=== PATIENT | female | born 1955 | race Caucasian/White ===

== ENCOUNTER 2024-11-25 12:08 | Emergency (ER) | payer MEDICARE, OTHER ==
[~2024-11-25] VITALS: Ht 154.9 cm; Wt 94.3 kg
[~2024-11-25 12:08] MED LIST: AMILORIDE HCL5 MG PO; CEPHALEXIN500 M1 PO; DILTIAZEM 24HR180 M1 PO; METOPROLOL SUCC25 MG PO; PANTOPRAZOLE SO40 MG PO; PAROXETINE HCL20 MG PO; SODIUM FLUORID100 ML DT; TIZANIDINE HCL2 MG PO
[2024-11-25] MEDS ORDERED: CARTIA XT180 MG PO (12:43)
[2024-11-25] MEDS ORDERED: FLUTICASONE-SA1 EAC4 IH (12:44)
[2024-11-25] MEDS ORDERED: FLUTICASONE PRO16 GM NAS (12:44)
[2024-11-25] MEDS ORDERED: OXYCODONE HCL 5 MG TAB PO ONE ×2 (12:45→13:45)
[2024-11-25] MEDS ORDERED: LIDOCAINE HCL 4% 1 EACH PATCH TD ONE (13:00)
[2024-11-25] MEDS ORDERED: KETOROLAC TROMETHAMINE 15 MG/ML VIAL IM ONE (13:00)
[2024-11-25] MEDS ORDERED: CYCLOBENZAPRINE HCL 10 MG TAB PO ONE ×2 (13:00→13:45)
[2024-11-25] MEDS ORDERED: CYCLOBENZAPRINE10 MG PO (15:21)
[2024-11-25] MEDS ORDERED: PERCOCET 5-3251 EACH PO (15:21)
[2024-11-25 15:28] VITALS: BP 143/73
--- NOTE | 2024-11-25 17:18 | EKG ---
[facility] [address] [facility] [facility] [address] [place], [place] [address] Signed Sinus bradycardia with sinus arrhythmia with 1st degree AV block Otherwise normal ECG No previous ECGs available Confirmed by Hair Brown MD ([id number]) on 11/25/2024 5:18:15 PM Electronically Signed By: HAIR BROWN MD 11/25/24 1718 PATIENT NAME: SHAMAR COTA Electrocardiogram DATE OF : 53 PHYSICIAN: HAIR BROWN MD REPORT #: [id number] REPORT IS CONFIDENTIAL AND NOT TO BE RELEASED WITHOUT AUTHORIZATION
[2024-11-25] MEDS ORDERED: LIDOCAINE PATCH REMOVAL 1 EA TD SCH (21:00)
== END 2024-11-25 15:30 | disposition home or self-care (01) ==
LOC: ED 12:08
DX: M54.50 Low back pain, unspecified (principal); I10 Essential (primary) hypertension; J45.909 Unspecified asthma, uncomplicated; Z91.041 Radiographic dye allergy status; Z88.8 Allergy status to other drugs, medicaments and biological substances; Z88.2 Allergy status to sulfonamides; Z79.899 Other long term (current) drug therapy
CPT/HCPCS: 96372; 99283; A9270; J1885

== ENCOUNTER 2025-03-14 21:41 | Emergency (ER) | payer MEDICARE, OTHER ==
[~2025-03-14] VITALS: Ht 154.9 cm; Wt 94.3 kg
--- OUTSIDE RECORDS SUMMARY | ~2025-03-14 | XMS | Continuity of Care Document ---
Demographics + + + | Address | [address] | | | [place] [address] | + + + | Preferred Language | Unknown | + + + | Marital Status | | + + + | Yazidi Affiliation | Unknown | + + + | Race | White | + + + | Ethnic Group | Not or | + + + Author + + + | Author | [facility] | + + + | Organization | [facility] | + + + | Address | [address] | | | [place] [address] | + + + | Phone | | + + + Care Team Providers + + + + | Care Classroom Paraprofessional Name | Role | Phone | + + + + Unavailable | Unavailable | + + + + Allergies No information. Encounters No information. Functional Status No information. Immunizations No information. Medications + + + + | date | description | facility | + + + + | (no date) | Fluticasone | [facility] [place] | | | Propion/Salmeterol | [facility] | + + + + | (no date) | PAROXETINE HCL | [facility] | | | | [facility] | + + + + | (no date) | FLUTICASONE PROPIONATE 50 | [facility] | | | MCG | [facility] | + + + + | (no date) | PANTOPRAZOLE SODIUM | [facility] | | | | [facility] | + + + + | (no date) | Fluoride (Sodium) | [facility] | | | | [facility] | + + + + | (no date) | DILTIAZEM HCL | [facility] | | | | [facility] | + + + + | (no date) | METOPROLOL SUCCINATE | [facility] | | | | [facility] | + + + + | (no date) | AMILORIDE HCL | [facility] | | | | [facility] | + + + + Problems No information. Procedures No information. Results/Labs No information. Social History + + + + | date | description | facility | + + + + | (no date) | Unknown if ever smoked | [facility] | | | | [facility] | + + + + Vital Signs No information."
[~2025-03-14 21:41] MED LIST changes: +CARTIA XT180 MG PO; +CYCLOBENZAPRINE10 MG PO; +FLUTICASONE PRO16 GM NAS; +FLUTICASONE-SA1 EAC4 IH; +PERCOCET 5-3251 EACH PO
[2025-03-14] MEDS ORDERED: ALBUTEROL/IPRATROPIUM 3 ML NEB ONE (21:46)
[2025-03-14 22:00] LABS: BASOPHILS 0.4 % (0.1-1.2); EOSINOPHILS 2.5 % (0.7-5.8); LYMPHOCYTES 39.1 % (19.3-51.7); MCH 28.6 PG (25.6-32.2); MCHC 33.3 g/dL (32.2-35.5); MCV 86.0 fL (79.4-94.8); MONOCYTES 7.2 % (4.7-12.5); NEUTROPHILS 50.4 % (34.0-71.1); RBC 4.86 M/uL (3.93-5.22)
[2025-03-14] MEDS ORDERED: ALBUTEROL SULFATE 0.5% 2.5 MG/0.5 ML VIAL INH ONE (22:00)
[2025-03-14] MEDS ORDERED: BUDESONIDE 0.5 MG/2 ML VIAL INH ONE (22:00)
[2025-03-14] MEDS ORDERED: ALBUTEROL/IPRATROPIUM 3 ML NEB INH PRN (22:00)
[2025-03-14] MEDS ORDERED: GUAIFENESIN/CODEINE 5 ML UDC PO ONE (22:15)
[2025-03-14 22:19] LABS: ALT (SGPT) 27.0 U/L (14-59); AST (SGOT) 20.0 U/L (15-37); GLOMERULAR FILTRATION RATE,EST 86.0 mL/min (>60); PROTEIN, TOTAL 6.9 g/dL (6.4-8.2); UREA NITROGEN 13.0 mg/dL (7-18)
[2025-03-14 22:37] LABS: INFLUENZA B NAA NEGATIVE (NEGATIVE); RESPIRATORY SYNCYTIAL VIR NAA NEGATIVE (NEGATIVE)
[2025-03-14] MEDS ORDERED: GUAIFENESIN/CODEINE 60 ML HOME.PACK PO ONE (23:30)
[2025-03-14] MEDS ORDERED: AZITHROMYCIN 250 MG HOME.PACK PO ONE (23:30)
[2025-03-14] MEDS ORDERED: methylPREDNISolone 4 MG HOME.PACK PO ONE (23:30)
[2025-03-14 23:37] VITALS: BP 151/87
--- NOTE | 2025-03-15 21:38 | EKG ---
[facility] [address] [place] [address] Signed Sinus rhythm with 1st degree AV block Otherwise normal ECG When compared with ECG of 25-NOV-2024, Sinus rhythm has replaced Sinus bradycardia Confirmed by Tayler Coleman MD () on 03/15/2025 9:37:46 PM Electronically Signed By: TAYLER COLEMAN MD 03/15/25 2138 PATIENT NAME: AMIRAHBURTONSHAMARAYDEE BRANCH Electrocardiogram DATE OF : 53 PHYSICIAN: TAYLER COLEMAN MD REPORT #: [id number] REPORT IS CONFIDENTIAL AND NOT TO BE RELEASED WITHOUT AUTHORIZATION
== END 2025-03-14 23:38 | disposition home or self-care (01) ==
LOC: ED 21:41
PROVIDERS: Family Medicine
DX: J45.901 Unspecified asthma with (acute) exacerbation (principal); I10 Essential (primary) hypertension; Z91.041 Radiographic dye allergy status; Z88.2 Allergy status to sulfonamides; Z88.8 Allergy status to other drugs, medicaments and biological substances
CPT/HCPCS: 36415; 71045; 80053; 83735; 84484; 85025; 87502; 93005; 93010; 94640; 94667; 96374; 99285-25; J2919; U0002

== ENCOUNTER 2025-03-21 17:09 | Emergency (ER) | payer MEDICARE, OTHER ==
[~2025-03-21] VITALS: Ht 154.9 cm; Wt 94.3 kg
--- OUTSIDE RECORDS SUMMARY | ~2025-03-21 | XMS | Continuity of Care Document ---
Demographics + + + | Address | [address] | | | [place] [address] | + + + | Preferred Language | Unknown | + + + | Marital Status | | + + + | Taoism Affiliation | Unknown | + + + | Race | White | + + + | Ethnic Group | Not or | + + + Author + + + | Author | [facility] | + + + | Organization | [facility] | + + + | Address | [address] | | | [place] [address] | + + + | Phone | | + + + Care Team Providers + + + + | Care Under Water Assistant Name | Role | Phone | + + + + Unavailable | Unavailable | + + + + Allergies No information. Encounters No information. Functional Status No information. Immunizations No information. Medications + + + + | date | description | facility | + + + + | (no date) | Fluticasone | [facility] | | | Propion/Salmeterol | [facility] | + + + + | (no date) | PAROXETINE HCL | [facility] | | | | [facility] | + + + + | (no date) | FLUTICASONE PROPIONATE 50 | [facility] | | | MCG | [facility] | + + + + | (no date) | PANTOPRAZOLE SODIUM | [facility] | | | | [facility] | + + + + | (no date) | Fluoride (Sodium) | [facility] | | | | [facility] | + + + + | (no date) | DILTIAZEM HCL | [facility] | | | | [facility] | + + + + | (no date) | METOPROLOL SUCCINATE | [facility] | | | | [facility] | + + + + | (no date) | AMILORIDE HCL | [facility] | | | | [facility] | + + + + Problems No information. Procedures No information. Results/Labs No information. Social History + + + + | date | description | facility | + + + + | (no date) | Unknown if ever smoked | [facility] | | | | [facility] | + + + + Vital Signs No information."
--- OUTSIDE RECORDS SUMMARY | 2025-03-21 17:11 | XMS ---
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 [place]le[place] VISIT COUNT (12 MO.) 3 [facility] TOTAL 3 NOTE: Visits indicate total known visits. ED/UCC VISIT TRACKING (12 MO.) 03/21/2025 17:09 [facility] TYPE: Emergency COMPLAINT: - DIFFICULTY BREATHING 03/14/2025 21:42 [facility] [place] TYPE: Emergency COMPLAINT: - SHORTNESS OF BREATH DIAGNOSES: - Allergy status to other drugs, medicaments and biological substances - Allergy status to sulfonamides - Essential (primary) hypertension - Radiographic dye allergy status - Shortness of breath - Unspecified asthma with (acute) exacerbation 11/25/2024 12:09 [facility] [place] TYPE: Emergency COMPLAINT: - NECK PAIN DIAGNOSES: - Allergy status to other drugs, medicaments and biological substances - Allergy status to sulfonamides - Essential (primary) hypertension - Low back pain, unspecified - Other keno terminal operator (current) drug therapy - Radiographic dye allergy status - Unspecified asthma, uncomplicated INPATIENT VISIT TRACKING (12 MO.) No inpatient visits to display in this time frame [id number]
[2025-03-21] MEDS ORDERED: PREDNISONE20 MG PO (17:23)
[2025-03-21 17:25] LABS: MCH 28.7 PG (25.6-32.2); MCHC 34.2 g/dL (32.2-35.5); MCV 84.1 fL (79.4-94.8); RBC 5.33 M/uL (3.93-5.22)
[2025-03-21 17:43] LABS: ALT (SGPT) 63.0 U/L (14-59); AST (SGOT) 22.0 U/L (15-37); BANDS, MANUAL DIFF 2; GLOMERULAR FILTRATION RATE,EST 55.0 mL/min (>60); LYMPHOCYTES, MANUAL DIFF 8; MONOCYTES, MANUAL DIFF 2; NEUTROPHILS, MANUAL DIFF 88; PROTEIN, TOTAL 6.9 g/dL (6.4-8.2); UREA NITROGEN 18.0 mg/dL (7-18)
[2025-03-21] MEDS ORDERED: levoFLOXacin 500 MG TAB PO ONE (19:15)
[2025-03-21] MEDS ORDERED: LEVOFLOXACIN500 MG PO (19:17)
[2025-03-21 19:36] VITALS: BP 140/77
--- NOTE | 2025-03-22 09:55 | EKG ---
[facility] [address] [facility] [place], [place] [address] Signed Normal sinus rhythm Cannot rule out Anterior infarct , age undetermined Abnormal ECG When compared with ECG of 14-MAR-2025 21:56, No significant change was found Confirmed by Madalyn Gabriel DO ([id number]) on 03/22/2025 9:55:31 AM Electronically Signed By: MADALYN GABRIEL DO 03/22/25 0955 PATIENT NAME: SHAMAR COTA Electrocardiogram DATE OF : 53 PHYSICIAN: MADALYN GABRIEL DO REPORT #: [id number] REPORT IS CONFIDENTIAL AND NOT TO BE RELEASED WITHOUT AUTHORIZATION
== END 2025-03-21 19:36 | disposition home or self-care (01) ==
LOC: ED 17:09
PROVIDERS: Emergency Medicine
DX: J40 Bronchitis, not specified as acute or chronic (principal); I10 Essential (primary) hypertension; K21.9 Gastro-esophageal reflux disease without esophagitis; Z79.51 Long term (current) use of inhaled steroids; Z79.899 Other long term (current) drug therapy; Z91.041 Radiographic dye allergy status; Z88.2 Allergy status to sulfonamides; Z88.8 Allergy status to other drugs, medicaments and biological substances
CPT/HCPCS: 36415; 71045; 80053; 83735; 84484; 85025; 93005; 93010; 99285-25